=== PATIENT | female | born 1995 | race American Indian/Alaskan Native ===

== ENCOUNTER 2018-06-15 08:18 | Emergency (ER) | payer OTHER ==
[2018-06-15 08:24] VITALS: BP 114/62; PULSE 94; TEMP 98.5; BMI 23.6
--- NOTE | 2018-06-15 08:56 | PDOC ---
History of Present Illness - General Chief Complaint: Sore Throat Stated Complaint: SORE THROAT AND RT EAR PAIN Time Seen by Provider: 06/15/18 08:52 History Source: Patient Exam Limitations: No Limitations - History of Present Illness Initial Comments: 06/15/18 08:53 22 year old female with no significant medical or surgical history presents with sorethroat x 4 days. Patient reports pain with swallowing, headaches and noticing "white stuff" in her throat. States no inability to tolerate po solids and liquids. Timing/Duration: reports: week Severity: reports: moderate Possible Cause: Yes: no prior episodes Modifying Factors: improves with: other (claritin and advil) Associated Symptoms: reports: earache, headache, sore throat. denies: facial pain, fever/chills Aspirin Received prior to arrival: No: no aspirin today ASA Contraindications(Core Measure): No: Allergy Beta Christiano Contraindications(Core Measure): Yes: Not Prescribed Beta Christiano Given by EMS(Core Measure): No Beta Christiano Taken at Home(Core Measure): No Beta Christiano Not Indicated at this Time(Core Measure): No Past History - Travel Traveled outside of the country in the last 30 days: No Close contact w/someone who was outside of country & ill: No - Past Medical History Allergies/Adverse Reactions: Allergies Allergy/AdvReac Type Severity Reaction Status Date / Time No Known Allergies Allergy Verified 06/15/18 08:23 Home Medications: Ambulatory Orders Etonogestrel [Nexplanon] 68 mg SQ ASDIR 04/07/18 Benzocaine/Menthol [Cepacol Sore Throat Lozenge] 1 each PO TID PRN #10 lozenge 06/15/18 Ibuprofen [Advil -] 400 mg PO TID #21 tablet 06/15/18 Loratadine [Claritin] 10 mg PO DAILY #10 tablet 06/15/18 Anemia: No Asthma: No Cancer: No Cardiac Disorders: No CVA: No COPD: No CHF: No Dementia: No Diabetes: No GI Disorders: No Disorders: No HTN: No Hypercholesterolemia: No Liver Disease: No Seizures: No Thyroid Disease: No - Suicide/Smoking/Psychosocial Hx Smoking History: Never smoked Have you smoked in the past 12 months: No If you are a former smoker, when did you quit?: 2014 Information on smoking cessation initiated: No Hx Alcohol Use: No Drug/Substance Use Hx: No Substance Use Type: Marijuana Respiratory Specific PMHX - Complaint Specific PMHX Angina: No Bronchitis: No Pneumonia: No Pulmonary Embolus: No TB (Tuberculosis): No Review of Systems - Review of Systems Able to Perform ROS?: Yes Is the patient limited [place] proficient: No Constitutional: No: Chills HEENTM: Yes: Throat Pain Respiratory: No: Cough Cardiac (ROS): No: Chest Pain, Lightheadedness, Palpitations ABD/GI: No: Poor Appetite, Poor Fluid Intake, Vomiting : No: Dysuria, Incontinence, Pain Musculoskeletal: No: Joint Pain, Muscle Pain, Muscle Weakness Integumentary: No: Change in Color, Erythema *Physical Exam - Vital Signs Last Vital Signs Temp Pulse Resp BP Pulse Ox 98.5 F 94 H 17 114/62 99 06/15/18 08:22 06/15/18 08:22 06/15/18 08:22 06/15/18 08:22 06/15/18 08:22 - Physical Exam General Appearance: Yes: Nourished, Appropriately Dressed HEENT: positive: Pharyngeal Erythema, TM Dull. negative: Tonsillar Exudate, Tonsillar Erythema, Hearing Grossly Normal, TM Bulging Neck: positive: Supple. negative: Lymphadenopathy (R), Lymphadenopathy (L) Respiratory/Chest: positive: Lungs Clear, Normal Breath Sounds Cardiovascular: positive: Regular Rhythm, Regular Rate Extremity: positive: Normal Capillary Refill Neurologic: positive: Fully Oriented, Alert Medical Decision Making - Medical Decision Making 06/15/18 08:59 22 year old female with no significant medical or surgical history presents with sorethroat x 4 days Plan: Dx: sorethroa rapid strep urine preg 06/15/18 09:35 re eval rapid strep: negative urine preg: negative D/c home with rx: claritin, lozengers and advil *DC/Admit/Observation/Transfer Diagnosis at time of Disposition: Sorethroat - Discharge Dispostion Disposition: HOME Condition at time of disposition: Good Decision to Admit order: No - Prescriptions Prescriptions: Benzocaine/Menthol [Cepacol Sore Throat Lozenge] 1 each PO TID PRN #10 lozenge PRN Reason: Cough Ibuprofen [Advil -] 400 mg PO TID #21 tablet Loratadine [Claritin] 10 mg PO DAILY #10 tablet - Referrals - Patient Instructions Printed Discharge Instructions: Sore Throat Additional Instructions: Please take medication as prescribed Use lozengers to soothe your throat - Post Discharge Activity
== END 2018-06-15 09:41 | disposition home or self-care (01) ==
LOC: JERFT 08:18
DX: J02.9 Acute pharyngitis, unspecified (principal)
CPT/HCPCS: 84703; 87070; 87880; 99281-25

== ENCOUNTER 2018-09-30 07:59 | Emergency (ER) | payer OTHER ==
[2018-09-30 08:06] VITALS: BP 95/69; PULSE 89; TEMP 98.6; BMI 27.0
--- NOTE | 2018-09-30 08:31 | PDOC ---
History of Present Illness - General Chief Complaint: Rash Stated Complaint: RASH Time Seen by Provider: 09/30/18 08:11 History Source: Patient Exam Limitations: No Limitations Past History - Past Medical History Allergies/Adverse Reactions: Allergies Allergy/AdvReac Type Severity Reaction Status Date / Time No Known Allergies Allergy Verified 06/15/18 08:23 Home Medications: Ambulatory Orders Hydrocortisone 1% Cream [Hytone 1% Cream -] 1 applic TP BID #1 tube 09/30/18 Anemia: No Asthma: No Cancer: No Cardiac Disorders: No CVA: No COPD: No CHF: No Dementia: No Diabetes: No GI Disorders: No Disorders: No HTN: No Hypercholesterolemia: No Liver Disease: No Seizures: No Thyroid Disease: No - Immunization History Immunization Up to Date: No - Suicide/Smoking/Psychosocial Hx Smoking History: Never smoked Have you smoked in the past 12 months: No If you are a former smoker, when did you quit?: 2014 Information on smoking cessation initiated: No Hx Alcohol Use: No Drug/Substance Use Hx: No Substance Use Type: Marijuana *Physical Exam - Vital Signs Last Vital Signs Temp Pulse Resp BP Pulse Ox 98.6 F 89 18 95/69 100 09/30/18 08:03 09/30/18 08:03 09/30/18 08:03 09/30/18 08:03 09/30/18 08:03 - Physical Exam General Appearance: No: Apparent Distress Integumentary: positive: Other (redness, thickening, around B/L nipples, no lesions noted, no nipple discharge). negative: Erythema, Jaundice, Mottled, Cold, Clammy, Moist, Hives, Swelling, Ecchymosis, Bruising Neurologic: positive: Alert, Normal Mood/Affect Medical Decision Making - Medical Decision Making 22 y/o F with no sig pmh presents w/ c/o skin irritation around B/L nipples from wearing band-aids around nipple region since June for nipple chafing. States was applying Bacitracin and putting Band-aid, but the constant pulling off of the band-aid adhesive starting irritating her skin around 1 month ago. Saw her PCP, who told her to continue applying the Bacitracin. Patient is trying to see video recorder mechanic. Denies fever, sob, cp, nipple discharge Likely contact dermatitis 09/30/18 08:27 *DC/Admit/Observation/Transfer Diagnosis at time of Disposition: Contact dermatitis Qualifiers: Contact dermatitis type: irritant Contact dermatitis trigger: unspecified trigger Qualified Code(s): L24.9 - Irritant contact dermatitis, unspecified cause - Discharge Dispostion Disposition: HOME Condition at time of disposition: Stable Decision to Admit order: No - Prescriptions Prescriptions: Hydrocortisone 1% Cream [Hytone 1% Cream -] 1 applic TP BID #1 tube - Referrals Referrals: Evelyn Green MD [Staff Physician] - 2 Days - Patient Instructions Printed Discharge Instructions: DI for Contact Dermatitis Additional Instructions: Thank you for choosing [facility]. It was a pleasure taking care of you. Avoid using Band-aids around nipple region until rash heals You were given gauze which you may use instead Apply hydrocortisone cream You were referred to video recorder mechanic for further evaluation Return to the Emergency Department if your symptoms worsen or persist or have other concerning symptoms. - Post Discharge Activity
== END 2018-09-30 08:35 | disposition home or self-care (01) ==
LOC: JERFT 07:59
DX: L24.9 Irritant contact dermatitis, unspecified cause (principal)
CPT/HCPCS: 99281-25

== ENCOUNTER 2019-02-20 23:10 | Emergency (ER) | payer OTHER ==
[2019-02-20 23:17] VITALS: BP 121/76; PULSE 97; TEMP 98; BMI 26.6
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
[2019-02-21] MEDS ORDERED: AMOX TR/POT CLAV 875MG/125MG TABLETS (FP) PO ONE (02:21)
[2019-02-21] MEDS ORDERED: AMOX TR/POT CLAV 875MG/125MG TABLETS (FP) ONE (02:26)
== END 2019-02-21 02:30 | disposition home or self-care (01) ==
LOC: JER 23:10
PROC: 0HQ1XZZ Repair Face Skin, External Approach (ICD-10-PCS; principal; 2019-02-20)
DX: S02.2XXA Fracture of nasal bones, initial encounter for closed fracture (principal); S01.21XA Laceration without foreign body of nose, initial encounter; W50.0XXA Accidental hit or strike by another person, initial encounter; Y93.82 Activity, spectator at an event; Y92.89 Other specified places as the place of occurrence of the external cause; Y99.8 Other external cause status
CPT/HCPCS: 70450-TC; 70486-TC; 99281-25

== ENCOUNTER 2020-04-28 10:14 | Emergency (ER) | payer OTHER ==
[2020-04-28 10:23] VITALS: BP 99/67; PULSE 67; TEMP 98.1; BMI 25.8
== END 2020-04-28 11:22 | disposition home or self-care (01) ==
LOC: JERFT 10:14 → JER 10:14 → JERFT 11:22
DX: S39.012A Strain of muscle, fascia and tendon of lower back, initial encounter (principal)
CPT/HCPCS: 99283-25

== ENCOUNTER 2022-04-26 13:52 | Emergency (ER) | payer OTHER ==
[2022-04-26 13:56] VITALS: BP 112/80; PULSE 90; RESP 18; TEMP 98; BMI 34.0
[2022-04-26] MEDS ORDERED: SODIUM CHLORIDE 1,000 ML IV STA (15:09)
[2022-04-26] MEDS ORDERED: FAMOTIDINE 20 MG/50 ML IVPB 20 MG/50 ML MG IVPB ONE ×2 (15:09→15:17)
[2022-04-26] MEDS ORDERED: MAG HYDROX/AL HYDROX/SIMETH -MYLANTA- ORAL SUSPENSION PO ONE (15:10)
[2022-04-26] MEDS ORDERED: MAG HYDROX/AL HYDROX/SIMETH 30 ML UNIT-DOSE CUP ONE (15:17)
[2022-04-26 16:04] LABS: BASO % 0.1 % (0-2.0); EOS % 1.1 % (0-4.5); HEMATOCRIT 41.7 % (32.4-45.2); HEMOGLOBIN 13.7 GM/dL (10.7-15.3); LYMPH % 27.2 % (8-40); MCH 25.4 pg (25.7-33.7); MCHC 32.9 g/dl (32.0-36.0); MEAN CELL VOLUME 77.3 fl (80-96); MEAN PLT VOLUME 8.7 fl (7.5-11.1); MONO % 5.7 % (3.8-10.2); NEUT % 65.9 % (42.8-82.8); PLATELET COUNT 223 10^3/uL (134-434); RDW 14.8 % (11.6-15.6); WHITE BLOOD COUNT 8.2 K/mm3 (4.0-10.0)
[2022-04-26 16:40] LABS: CALCIUM 8.8 mg/dL (8.5-10.1)
[2022-04-26 16:41] LABS: ALBUMIN 3.8 g/dl (3.4-5.0); BLOOD UREA NITROGEN 6.4 mg/dL (7-18)
[2022-04-26 16:44] LABS: CREATININE 0.7 mg/dL (0.55-1.3)
[2022-04-26 16:45] LABS: BILIRUBIN,TOTAL 0.6 mg/dL (0.2-1); TOT PROT 7.5 g/dl (6.4-8.2)
[2022-04-26 17:21] LABS: EPI CELLS 19 /uL (0-25.1); HCG,QUALITATIVE URINE Negative; HYALINE CASTS 0 /uL (0-3.1); URINE APPEARANCE CLEAR; URINE BACTERIA 1135 /uL (0-1359); URINE BILIRUBIN NEGATIVE (NEGATIVE); URINE COLOR YELLOW; URINE GLUCOSE (UA) NEGATIVE (NEGATIVE); URINE KETONE NEGATIVE (NEGATIVE); URINE LEUK ESTERASE 1+ (NEGATIVE); URINE NITRITE NEGATIVE (NEGATIVE); URINE PROTEIN NEGATIVE (NEGATIVE); URINE RBC 14 /uL (0-23.9); URINE UROBILINOGEN 0.2 mg/dL (0.2-1.0); URINE WBC 25 /uL (0-25.8)
== END 2022-04-26 17:43 | disposition home or self-care (01) ==
LOC: JER 13:52
PROC: 3E033GC Introduction of Other Therapeutic Substance into Peripheral Vein, Percutaneous Approach (ICD-10-PCS; principal; 2022-04-26)
PROC: 3E0337Z Introduction of Electrolytic and Water Balance Substance into Peripheral Vein, Percutaneous Approach (ICD-10-PCS; 2022-04-26)
DX: R06.00 Dyspnea, unspecified (principal)
CPT/HCPCS: 36415; 71046-TC-FY; 80053; 81003; 83690; 84484; 84703; 85025; 87086; 93005; 93010; 99285-25

== ENCOUNTER 2022-08-26 21:39 | Emergency (ER) | payer OTHER ==
[2022-08-26 21:45] VITALS: BP 126/64; PULSE 61; RESP 18; TEMP 98.4; BMI 32.5
[2022-08-26] MEDS ORDERED: ACETAMINOPHEN 500 MG TABLET (FP) PO ONE (23:01)
[2022-08-26] MEDS ORDERED: DEXAMETHASONE SOD PHOSPHATE 10 MG/1 ML VIAL PO ONE (23:01)
[2022-08-26] MEDS ORDERED: ACETAMINOPHEN 500 MG TABLET (FP) ONE (23:07)
[2022-08-26] MEDS ORDERED: DEXAMETHASONE SOD PHOSPHATE 10 MG/1 ML VIAL ONE (23:07)
[2022-08-27 00:09] LABS: THROAT:GRP A STREP NOT DETECTED (NOTDETECTED)
== END 2022-08-27 00:36 | disposition home or self-care (01) ==
LOC: JERFT 21:39
PROC: 3E033NZ Introduction of Analgesics, Hypnotics, Sedatives into Peripheral Vein, Percutaneous Approach (ICD-10-PCS; principal; 2022-08-26)
DX: R13.10 Dysphagia, unspecified (principal); J02.9 Acute pharyngitis, unspecified
CPT/HCPCS: 0241U-QW; 87651; 99284-25; J1100